=== PATIENT | female | born 1940 ===

== ENCOUNTER 2017-04-08 12:34 | Emergency (ER) | payer MEDICARE, OTHER ==
[2017-04-08 12:40] VITALS: BMI 22.9
--- NOTE | 2017-04-08 13:35 | C.PDOC ---
History Of Present Illness 77-year-old female, presents to the emergency department with complaints of mechanical fall. Patient states she was standing on a one-step, stepping stool this morning, when she fell backward, causing her to hit her head on floor. Patient is complaining of pain to her right hip and buttock. Patient notes she is feeling dizzy, but is unsure whether she had loss of consciousness. Patient currently complaining of a headache. Denies weakness/numbness, change in vision , or any other associated symptoms. No other complaints at this time. - HPI Time Seen by Provider: 04/08/17 12:52 Chief Complaint (Nursing): Trauma History Per: Patient History/Exam Limitations: no limitations Injury Occurred (Timing): Just Before Arrival Past Medical History Reviewed: Historical Data, Nursing Documentation, Vital Signs Vital Signs: Last Vital Signs Temp 98.1 F 04/08/17 12:40 Pulse 56 L 04/08/17 14:33 Resp 18 04/08/17 14:33 BP 134/52 L 04/08/17 14:33 Pulse Ox 100 04/08/17 15:17 - Medical History PMH: Colonic Polyps, Diabetes, HTN, Hypercholesterolemia - Social History Hx Tobacco Use: No Hx Alcohol Use: No Hx Substance Use: No - Immunization History Hx Tetanus Toxoid Vaccination: Yes Hx Influenza Vaccination: Yes Hx Pneumococcal Vaccination: Yes Review Of Systems Except As Marked, All Systems Reviewed And Found Negative. Constitutional: Negative for: Fever, Chills Cardiovascular: Negative for: Chest Pain Respiratory: Negative for: Shortness of Breath Gastrointestinal: Negative for: Nausea, Vomiting Musculoskeletal: Positive for: Back Pain Neurological: Positive for: Headache, Dizziness. Negative for: Weakness, Numbness Physical Exam - Physical Exam Appears: Non-toxic, No Acute Distress Skin: Warm, Dry, No Rash Head: Other (Mild pain to occiput with scattered abrasions and contiusion. No lacerations) Eye(s): bilateral: Normal Inspection, PERRL, EOMI Nose: Normal Oral Mucosa: Moist Lips: Normal Appearing Neck: Normal ROM, Other (C5-C7) Cardiovascular: Rhythm Regular, No Murmur Respiratory: Normal Breath Sounds, No Accessory Muscle Use Gastrointestinal/Abdominal: Soft, No Tenderness Extremity: Tenderness (right, gluteal and hip. Range of motion intact.) Neurological/Psych: Oriented x3, Normal Speech ED Course And Treatment O2 Sat by Pulse Oximetry: 100 Disposition Counseled Patient/Family Regarding: Studies Performed, Diagnosis, Need For Followup, Rx Given - Disposition Referrals: Woodrow Lowe MD [Staff Provider] - Disposition: HOME/ ROUTINE Disposition Time: 15:20 Condition: STABLE Additional Instructions: SEGUIMIENTO CON PERRIN MDICO / CLNICA EN 1-2 PERKINS USE MEDICAMENTOS SEGN LO INDICADO REGRESE AL MARLENI DE EMERGENCIA SI LOS SNTOMAS EMPEORAN Prescriptions: Cyclobenzaprine [Cyclobenzaprine HCl] 10 mg PO BID PRN #15 tab PRN Reason: Muscle Spasm RX: Naproxen 375 mg PO BID PRN #20 tablet PRN Reason: pain Instructions: Head Injury (ED), Hip Sprain (ED), Abrasion (ED), Cervical Sprain (ED) Forms: Best Teacher (Kinyarwanda) Print Language: INDONESIAN - POA Present On Arrival: None - Clinical Impression Clinical Impression: Head injury, closed, Acute cervical sprain, Sprain of right hip, Abrasion - Scribe Statement The provider has reviewed the documentation as recorded by the Scribe (Stephane Larry) All medical record entries made by the Scribe were at my direction and personally dictated by me. I have reviewed the chart and agree that the record accurately reflects my personal performance of the history, physical exam, medical decision making, and the department course for this patient. I have also personally directed, reviewed, and agree with the discharge instructions and disposition.
[2017-04-08 14:34] VITALS: PULSE 56; RESP 18
--- NOTE | 2017-04-08 14:38 | CT ---
PROCEDURE: CT HEAD WITHOUT CONTRAST. HISTORY: HEADACHE, HEAD INJURY COMPARISON: None available. TECHNIQUE: Axial computed tomography images were obtained through the head/brain without intravenous contrast. Radiation dose: Total exam DLP = 895 mGy-cm. This CT exam was performed using one or more of the following dose reduction techniques: Automated exposure control, adjustment of the mA and/or kV according to patient size, and/or use of iterative reconstruction technique. FINDINGS: HEMORRHAGE: No intracranial hemorrhage. BRAIN: No mass effect or edema. Scattered focal lucencies in the subcortical and periventricular white matter suggestive for chronic microvascular ischemic change. Punctate right basal ganglia calcification. VENTRICLES: Unremarkable. No hydrocephalus. CALVARIUM: Unremarkable. PARANASAL SINUSES: Unremarkable as visualized. No significant inflammatory changes. MASTOID AIR CELLS: Partial opacification of the left mastoid air cells. OTHER FINDINGS: Intracranial arterial calcifications. IMPRESSION: No acute intracranial abnormality. Chronic microvascular ischemic change. Partial opacification of the left mastoid air cells. Punctate right basal ganglia calcification. If headache persists, consider further evaluation with MRI.
[2017-04-08] MEDS ORDERED: Tetanus/Diphtheria Toxoids 0.5 ml Syringe IM ONE ×2 (14:42→15:18)
[2017-04-08 14:51] VITALS: O2SAT 100
--- NOTE | 2017-04-08 15:12 | CT ---
CT cervical spine History: Neck pain. Fall. Comparison: None available. Technique: Multiple contiguous axial images were performed through the cervical spine without the use of intravenous contrast. Subsequently, sagittal and coronal reformatted images were obtained. This CT exam was performed using one or more of the following dose reduction techniques: Automated exposure control, adjustment of the mA and/or kV according to patient size, and/or use of iterative reconstruction technique. Findings: Straightening of the normal cervical lordosis. Mild anterolisthesis of C7 on T1. Prominent degenerative changes with joint space narrowing and bony hypertrophy noted at the atlantodental interval. Mild loss of height of the inferior endplates of the C3, C4, C5, C6, and C7 vertebral bodies. Prominent multilevel anterior osteophyte formation seen at the C3-4, C4-5, C5-6, C6-7, C7-T1, T1- T2, and T3-4 levels. Multilevel posterior disc osteophyte complexes most pronounced at the C5-6, C6-7, C7-T1, and T1-2 levels. Additional loss of height of the C5 and C6 vertebral body levels. Prominent vertical trabeculations seen within the C3 vertebral body suggestive for a prominent vertebral body hemangioma. Multilevel uncovertebral joint and facet hypertrophy. Punctate lucency seen at the right posterior facet of the C5 vertebral body best seen on series 601, image 25 which may represent a small traversing vessel versus punctate avulsion injury. Clinical correlation. No significant prevertebral soft tissue swelling. Partial opacification of the left mastoid air cells. Prominent calcification and plaque within the aorta. Impression: 1. Severe degenerative changes as above. 2. Punctate lucency seen at the right posterior facet of the C5 vertebral body best seen on series 601, image 25 which may represent a small traversing vessel versus punctate avulsion injury. Clinical correlation. 3. Partial opacification of the left mastoid air cells. If pain persists, consider MRI.
[2017-04-08 15:38] VITALS: BP 130/74; TEMP 98
--- NOTE | 2017-04-08 16:05 | RAD ---
Pelvis and right hip two views History: Hip pain. Comparison: None available. Findings: Moderate degenerative changes of the right hip joint space with subchondral sclerosis and osteophytosis. Mild productive change at the right greater trochanter. No evidence for acute displaced fracture or dislocation. Limited evaluation of the remainder of the bony pelvis demonstrates moderate degenerative changes in the lower lumbar spine and left hip. Impression: Degenerative changes. If pain persists, consider MRI.
== END 2017-04-08 15:35 | disposition home or self-care (01) ==
LOC: C.ER 12:34
DX: S00.03XA Contusion of scalp, initial encounter (principal); S13.4XXA Sprain of ligaments of cervical spine, initial encounter; S73.101A Unspecified sprain of right hip, initial encounter; S00.01XA Abrasion of scalp, initial encounter; W17.89XA Other fall from one level to another, initial encounter